=== PATIENT | female | born 1965 ===

== ENCOUNTER 2025-05-25 18:11 | Emergency (ER) | payer OTHER ==
[~2025-05-25] VITALS: Ht 162.6 cm; Wt 97.5 kg
[2025-05-25] MEDS ORDERED: ONDANSETRON HCL INJ 2MG/ML 2ML 2 MG/ML VIAL IV STA (18:21)
[2025-05-25 19:39] LABS: BASOPHILS % 0.5 % (0.0-1.0); EOSINOPHILS % 3.0 % (0.0-6.0); LYMPHOCYTES % 34.8 % (18.0-39.1); MONOCYTES % 7.4 % (4.4-11.3); NEUTROPHILS % 53.4 % (38.7-80.0); RED CELL DISTRIBUTION WIDTH 13.3 % (11.7-14.4)
[2025-05-25 19:43] LABS: LEUKOCYTE ESTERASE ,URINE TRACE (NEGATIVE); PROTEIN,URINE DIPSTICK TRACE (NEGATIVE); URINE UROBILINOGEN 1 mg/dL (0.2 - 1)
[2025-05-25] MEDS: FENTANYL CITRATE/PF 100MCG/2 ML INJ IV ONE (20:02)
[2025-05-25] MEDS: KETOROLAC TROMETHAMINE 30 MG/ML VIAL IV STA (20:02)
[2025-05-25] MEDS: PROMETHAZINE 12.5MG/ NACL 0.9% 12.5 MG/50 ML BAG IV ONE (20:03)
[2025-05-25 20:10] LABS: EST GLOMERULAR FILTRATION RATE 92.0 ML/MIN (>=60)
[2025-05-25 20:14] LABS: EPITHELIAL CELLS,URINE FEW /LPF; WBC,URINE (MAN) 0-5 /HPF (0-5)
[2025-05-25 20:15] LABS: CALCIUM OXALATE CRYSTALS,UR FEW (FEW)
[2025-05-25] MEDS: Morphine 4mg INJECTION 4 MG/ML INJ IV ONE (22:04)
[2025-05-25] MEDS ORDERED: CEFDINIR300 MG PO (23:21)
[2025-05-26 00:05] VITALS: PULSE 84; RESP 17; TEMP 98.7; O2SAT 98
== END 2025-05-26 00:05 | disposition home or self-care (01) ==
LOC: ER 18:20
DX: R10.32 Left lower quadrant pain (principal); R10.31 Right lower quadrant pain; N39.0 Urinary tract infection, site not specified; R19.7 Diarrhea, unspecified; N18.9 Chronic kidney disease, unspecified; K76.9 Liver disease, unspecified; F32.A Depression, unspecified; F17.210 Nicotine dependence, cigarettes, uncomplicated
CPT/HCPCS: 36415; 74176; 80053; 81001; 85025; 87086; 93970; 99284; J1885; J2270; J2405; J2550